=== PATIENT | male | born 1975 | race Caucasian/White ===

== ENCOUNTER 2017-10-28 08:54 | Emergency (ER) | payer MEDICAID ==
[~2017-10-28] VITALS: Ht 172.7 cm; Wt 72.7 kg
[2017-10-28 09:15] VITALS: BP 136/88
[2017-10-28] MEDS ORDERED: LIDOCAINE 1%, 20ML SQ ONE (09:30)
== END 2017-10-28 10:05 | disposition home or self-care (01) ==
LOC: ED 10:00
DX: L02.412 Cutaneous abscess of left axilla (principal)
CPT/HCPCS: 99283